=== PATIENT | female | born 1985 | race Two or more races ===

== ENCOUNTER 2019-01-30 09:47 | Emergency (ER) | payer MEDICAID ==
[~2019-01-30] VITALS: Ht 154.9 cm; Wt 87.0 kg
[2019-01-30 12:36] VITALS: BP 124/88
== END 2019-01-30 12:28 | disposition home or self-care (01) ==
LOC: ER 09:47
DX: M79.89 Other specified soft tissue disorders (principal); H91.91 Unspecified hearing loss, right ear
CPT/HCPCS: 81025; 99283